=== PATIENT | male | born 1985 | race Caucasian/White ===

== ENCOUNTER 2025-08-06 14:41 | Outpatient (CLI) | payer MEDICAID ==
[~2025-08-06 14:41] MED LIST: AMLO10TA13 PO; BRIM5DRO2 LEFTEYE; CALC500T11 PO; CARV6.2553 PO; CLON1PAT15 TOP; FURO80TA3 PO; LOSA100T58 PO; PRED5DRO23 LEFTEYE
--- NOTE | 2025-08-06 16:34 | VASCULAR REPORT ---
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 : CRISTHIAN BLACK, Preliminary Report The above named patient was referred for a NON-INVASIVE LOWER EXTREMITY ARTERIAL EVALUATION. The evaluation includes grayscale imaging, color flow Doppler and spectral analysis of the lower extermity arteries. Patient OUT-PATIENT Inaration's Weak SENIOR DRAFTER pulses felt on exam Risk Factors Diabetes VELOCITY AND DOPPLER WAVEFORM ANALYSIS RIGHT cm/se Waveform Severity LEFT cm/se Waveform Severity c c dCFA 77.1 Multiphasic dCFA 72.8 Multiphasic Prof Fem 77. Multiphasic Prof Fem 66.6 Multiphasic Art Art. Fem Art 93.5 Multiphasic Fem Art 67.4 Multiphasic Prox. Prox. Fem Art 107.6 Multiphasic Fem Art 412.4 Multiphasic Severe >80% Mid. Mid. Fem Art 108.0 Multiphasic Fem Art 78.9 Multiphasic Dist Dist. Pop Art(AK) 81.9 Multiphasic Pop Art(AK) 69.9 Minimally Multiphasic Pop Art(BK) 87.2 Multiphasic Pop Art(BK) 51.6 Minimally Multiphasic SENIOR DRAFTER Dist. 37.1 Monophasic SENIOR DRAFTER Dist. 55.0 Multiphasic Per Art Dist. 25.8 Monophasic Per Art Dist. 46.4 Monophasic DIANA Dist. 102.2 Monophasic DIANA Dist. 75.6 Monophasic DPA 296.8 Monophasic Moderate 50-79% DPA 26.6 Monophasic Impression: Multiphasic above knee, monophasic below knee bilaterally. 50-79% stenosis demonstrated Right DPA. >80% stenosis Left SFA mid.
--- NOTE | 2025-08-06 16:43 | VASCULAR REPORT ---
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 : CRISTHIAN BLACK, Preliminary Report The above named patient was referred for a PHYSIOLOGIC ARTERIAL DOPPLER EVALUATION. The evaluation includes blood pressures, ankle brachial indices (BAN), and segmental Doppler waveform analysis at rest and post exercise when applicable. Toe brachial indices (TBI) taken when necessary. Patient OUT-PATIENT Enaation: Ankle to Brachial Index Indieations Weak FLAT FINISHER pulses on exam Risk Factors Diabetes Pressures/Indices Right AB Left AB Brachial 170mmHg Brachial Ankle(PT) 80mmHg 0.47 Ankle(PT) NCmmHg NC Ankle(DP) NCmmHg NC Ankle(DP) NCmmHg NC Critical Notification Impression: 2. Monophasic pedal waveforms bilaterally. 3. 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 4. Left BAN at rest noncompressible indicating medial calcinosis.
== END 2025-08-06 23:59 | disposition home or self-care (01) ==
LOC: VAS 14:41
PROVIDERS: ATTEND Student in an Organized Health Care Education/Training Program
DX: R09.89 Other specified symptoms and signs involving the circulatory and respiratory systems (principal); E83.59 Other disorders of calcium metabolism
CPT/HCPCS: 93922; 93925

== ENCOUNTER → 2025-08-25 | Day surgery (SDC) | payer MEDICAID ==
[~2025-08-25] MED LIST changes: +LIDOcaine 1%/PF 5ML 10 MG/ML VIAL ONE
[2025-08-25 09:26] VITALS: BP 151/89; PULSE 95; RESP 16; O2SAT 94
--- NOTE | 2025-08-25 09:27 | AUTHORIZATION AND CONSENTS ---
Informed Consent Providers to CC CC: MAISHA BECKMAN MD ~ Informed Consent Patient seen and evaluated. Mallapati 2, ASA 2. Tunneled Dialysis catheter has been in place since October 2024. Risks, benefits, and alternatives discussed with the patient and/or authorized decision maker. Discussed possible compli cations including bleeding, infection, damage to vessel or catheter retrieval via snare. Informed consent obtained. Patient consents to proceed. DAVY LAMB SPECIAL NEEDS CAREGIVER Aug 25, 2025 09:27
--- NOTE | 2025-08-25 14:12 | PROGRESS NOTE ---
Progress Note - Angio Providers to CC ~ Angio Progress Note: After time out, blunt and sharp dissection for removal of RIJ TDC performed. 8cc 1% lidocaine. Catheter inspected, no fractures. Wound closed with steri strips. No bleeding. MAISHA BECKMAN MD Aug 25, 2025 14:12
== END | disposition home or self-care (01) ==
LOC: ANGIO 08:55
PROVIDERS: ATTEND Radiology Diagnostic Radiology
DX: Z45.2 Encounter for adjustment and management of vascular access device (principal); E11.22 Type 2 diabetes mellitus with diabetic chronic kidney disease; N18.9 Chronic kidney disease, unspecified
CPT/HCPCS: 36589; J3490